=== PATIENT | female | born 1975 | race Caucasian/White ===

== ENCOUNTER → 2021-03-03 | Outpatient (CLI) | payer OTHER ==
[~2021-03-03] MED LIST: NONE PER PT
[2021-03-03 15:57] LABS: BASOPHILS % (AUTO) 1 % (0-1); EOSINOPHILS % (AUTO) 1 % (1-7); LYMPHOCYTES % (AUTO) 35 % (22-44); MD NO; MEAN CORPUSCULAR HEMOGLOBIN 31.6 pg (27.0-34.8); MEAN PLATELET VOLUME 8.1 fL (7.4-10.4); MONOCYTES % (AUTO) 6 % (2-9); NEUTROPHILS % (AUTO) 57 % (42-75); PLATELET COUNT 308 x10^3/uL (130-400); RED BLOOD COUNT 4.56 x10^6/uL (3.82-5.3); RED CELL DISTRIBUTION WIDTH 12.8 % (9.6-15.2)
[2021-03-03 16:06] LABS: MICROSCOPIC AUTO
[2021-03-03 16:09] LABS: ALANINE AMINOTRANSFERASE 27 U/L (12-78); ALBUMIN 4.1 g/dL (3.4-5.0); ANION GAP 6 mmol/L (5-15); CHLORIDE 104 mmol/L (98-107); CREATININE 0.83 mg/dL (0.55-1.02)
[2021-03-03 16:13] LABS: ALKALINE PHOSPHATASE 72 U/L (45-117); BILIRUBIN,TOTAL 0.3 mg/dL (0.2-1.0); TOTAL PROTEIN 7.8 g/dL (6.4-8.2)
== END | disposition home or self-care (01) ==
LOC: STAR 15:07
PROVIDERS: ATTEND Obstetrics & Gynecology Gynecology
DX: Z01.812 Encounter for preprocedural laboratory examination (principal); Z20.822 Contact with and (suspected) exposure to COVID-19; D25.9 Leiomyoma of uterus, unspecified; N92.0 Excessive and frequent menstruation with regular cycle
CPT/HCPCS: 36415; 80053; 81001; 84703; 85025; U0003

== ENCOUNTER 2021-03-07 07:54 | Day surgery (SDC) | payer OTHER ==
[~2021-03-07] VITALS: Ht 170.2 cm; Wt 73.6 kg
[2021-03-07] MEDS ORDERED: MIDAZOLAM 1 MG/ML, 2ML ONE (08:23)
[2021-03-07] MEDS ORDERED: FENTANYL PF 250 MCG/5ML ONE (08:24)
[2021-03-07] MEDS ORDERED: LACTATED RINGERS 1,000 ML IV SCH (08:30)
[2021-03-07] MEDS ORDERED: CHLORHEXIDINE 15 ML UDC PO ONE (08:30)
[2021-03-07] MEDS ORDERED: EPINEPHRINE 1 MG/ML, 1ML ONE (08:49)
[2021-03-07] MEDS ORDERED: LIDOCAINE/PF 1%, 30ML ONE (08:49)
[2021-03-07] MEDS ORDERED: INDIGO CARMINE 0.8%, 5ML ONE (08:49)
[2021-03-07 08:54] VITALS: BP 112/51
[2021-03-07] MEDS ORDERED: DIAZEPAM 5 MG/ML, 2ML IV PRN ×2 (10:30)
[2021-03-07] MEDS ORDERED: MEPERIDINE/PF 25MG/0.5ML IVPush PRN (10:30)
[2021-03-07] MEDS ORDERED: PROMETHAZINE 25 MG/ML, 1ML IV PRN (10:30)
[2021-03-07] MEDS ORDERED: LABETALOL 5MG/ML, 20ML IV PRN (10:30)
[2021-03-07] MEDS ORDERED: hydrALAzine 20 MG/ML, 1ML IV PRN (10:30)
[2021-03-07] MEDS ORDERED: ONDANSETRON 2MG/ML, 2ML IVPush PRN (10:30)
[2021-03-07] MEDS ORDERED: KETOROLAC 30 MG/1 ML IV PRN (10:30)
[2021-03-07] MEDS ORDERED: HYDROmorphone 1 MG/ML, 1ML INJ IV PRN (10:30)
[2021-03-07] MEDS ORDERED: METOCLOPRAMIDE 5 MG/ML, 2ML IV PRN (10:30)
[2021-03-07] MEDS ORDERED: ALBUTEROL SULFATE 2.5 MG/3 ML NPPB PRN (10:30)
[2021-03-07] MEDS ORDERED: ACETAMINOPHEN 650 MG/20.3 ML UDC ONE (10:50)
[2021-03-07] MEDS ORDERED: FENTANYL PF 100 MCG/2ML ONE (10:50)
[2021-03-07] MEDS ORDERED: OXYcodone 5 MG/5 ML ORAL.SOL UDC ONE (10:50)
[2021-03-07] MEDS: FENTANYL PF 100 MCG/2ML IV PRN ×4 (10:50→11:10)
[2021-03-07] MEDS: OXYcodone 5 MG/5 ML ORAL.SOL UDC PO PRN ×2 (11:00→12:32)
== END 2021-03-07 17:25 | disposition home or self-care (01) ==
LOC: OUT 07:54
PROVIDERS: ATTEND Obstetrics & Gynecology Gynecology
DX: N92.0 Excessive and frequent menstruation with regular cycle (principal); D25.1 Intramural leiomyoma of uterus; D23.5 Other benign neoplasm of skin of trunk; Z88.0 Allergy status to penicillin; Z91.040 Latex allergy status
CPT/HCPCS: 11400; 36415; 58291; 85014; 88304; 88307; J0171; J2250; J2405; J3010; J7120